=== PATIENT | female | born 1980 | race African-American/Black ===

== ENCOUNTER 2019-03-18 07:30 | Emergency (ER) | payer SELFPAY ==
[~2019-03-18] VITALS: Ht 162.6 cm; Wt 90.7 kg
[2019-03-18] MEDS ORDERED: HYDROcodone/APAP 7.5/325MG 1 TAB TABLET PO ONE (07:45)
[2019-03-18] MEDS ORDERED: CYCLOBENZAPRINE 10 MG TABLET. PO ONE (07:45)
--- NOTE | 2019-03-18 08:02 | PHYS DOC ---
Past Medical History Past Medical History: Hypertension Past Surgical History: No Surgical History Alcohol Use: None Drug Use: None Adult General Chief Complaint Chief Complaint: SHOULDER INJURY HPI HPI Patient is a 39 year old left handed female who presents with complaining of right shoulder pain. Patient states she woke up this morning with right shoulder pain without known injury. Patient rated her pain 10 over 10 and states the pain getting force with movement of his shoulder. Patient denies focal neurodeficit and history of overusing her shoulder or shoulder pain. Review of Systems Review of Systems Constitutional: Denies fever or chills [] Eyes: Denies change in visual acuity, redness, or eye pain [] HENT: Denies nasal congestion or sore throat [] Respiratory: Denies cough or shortness of breath [] Cardiovascular: No additional information not addressed in HPI [] GI: Denies abdominal pain, nausea, vomiting, bloody stools or diarrhea [] : Denies dysuria or hematuria [] Musculoskeletal: Denies back pain, reports joint pain [] Integument: Denies rash or skin lesions [] Neurologic: Denies headache, focal weakness or sensory changes [] Endocrine: Denies polyuria or polydipsia [] All other systems were reviewed and found to be within normal limits, except as documented in this note. Current Medications Current Medications Current Medications Medications (Trade) Dose Ordered Sig/Nicole Start Time Stop Time Status Last Admin Dose Admin Acetaminophen/ Hydrocodone Bitart (Lortab 7.5/325) 1 tab 1X ONCE 03/18/19 07:45 03/18/19 08:08 DC 03/18/19 08:17 1 TAB Cyclobenzaprine HCl (Flexeril) 10 mg 1X ONCE 03/18/19 07:45 03/18/19 08:08 DC 03/18/19 08:17 10 MG Allergies Allergies Allergies Coded Allergies Type Severity Reaction Last Updated Verified No Known Drug Allergies 03/18/19 No Physical Exam Physical Exam Constitutional: Well developed, well nourished, mild distress, non-toxic appearance. [] HENT: Normocephalic, atraumatic, oropharynx moist. Eyes: PERRLA, EOMI, conjunctiva normal, no discharge. [] Neck: Normal range of motion, no tenderness, supple, no stridor. [] Cardiovascular:Heart rate regular rhythm, no murmur [] Lungs & Thorax: Bilateral breath sounds clear to auscultation [] Skin: Warm, dry, no erythema, no rash. [] Back: No tenderness, no CVA tenderness. [] Extremities: Right shoulder without deformity or edema or ecchymosis, mild tenderness anterior shoulder without limited range of motion, no cyanosis, no clubbing, no edema. [] Neurologic: Alert and oriented X 3, normal motor function, normal sensory func tion, no focal deficits noted. [] Psychologic: Affect normal. Current Patient Data Vital Signs Vital Signs Date Time Temp Pulse Resp B/P (MAP) Pulse Ox O2 Delivery O2 Flow Rate FiO2 03/18/19 08:17 16 96 Room Air 03/18/19 07:34 97.9 80 201/93 (129) 97.9 EKG EKG [] Radiology/Procedures Radiology/Procedures [] Course & Med Decision Making Course & Med Decision Making Pertinent Imaging studies reviewed. (See chart for details) Evaluation of patient in ER showed 39-year-old female patient with complaint of right shoulder pain since this morning without injury. Patient had normal but painful range of motion of right shoulder. X-ray did not show acute finding. Patient also had history of hypertension and didn't take her blood pressure medication this morning and had blood pressure 190 over 120s. Blood pressure gradually decreased to 170/100. Patient treated with [place] and Flexeril and felt better. Plan to apply shoulder sling. She was advised to follow with her primary care physician and take her blood pressure medication as recommended. Dragon Disclaimer Dragon Disclaimer This electronic medical record was generated, in whole or in part, using a voice recognition dictation system. Departure Departure Impression: Primary Impression: Sprain of right shoulder Additional Impression: Uncontrolled hypertension Disposition: HOME, SELF-CARE (at [phone]) Condition: IMPROVED Patient Instructions: Managing Your High Blood Pressure, Shoulder Sprain Additional Instructions: Follow-up with your primary care physician in 3-5 days Return to ER if not getting better Apply ice on the affected area Scripts Hydrocodone/Apap 5-325 (NORCO 5-325 TABLET) 1 Each Tablet 1 TAB PO PRN Q6HRS PRN for PAIN, #10 TAB 0 Refills Prov: RADHA GRANT MD 03/18/19 Naproxen (NAPROSYN) 500 Mg Tablet 1 TAB PO BID for pain, #20 TAB Prov: RADHA GRANT MD 03/18/19 Cyclobenzaprine Hcl (CYCLOBENZAPRINE HCL) 10 Mg Tablet 1 TAB PO TID for muscle pain, #20 TAB Prov: RADHA GRANT MD 03/18/19 Problem Qualifiers Primary Impression: Sprain of right shoulder Encounter type: initial encounter Shoulder sprain type: unspecified sprain Qualified Codes: S43.401A - Unspecified sprain of right shoulder joint, initial encounter RADHA GRANT MD Mar 18, 2019 08:02
--- NOTE | 2019-03-18 08:24 | RAD ---
RIGHT SHOULDER , 3 VIEWS Clinical Indication: woke up this am with severe right shoulder pain, no known injury, feels like its locking up. Comparison: None. Findings: There is no acute fracture or dislocation. The glenohumeral joint is intact. Mild acromioclavicular arthropathy. The visualized lung is clear. There is no evidence of a displaced rib fracture. There is no soft tissue abnormality. IMPRESSION: No acute fracture or dislocation. Electronically signed by: Ganesh Conklin MD (03/18/2019 8:21 AM) [id number]
[2019-03-18] MEDS ORDERED: NAPR-683 PO ×2 (08:36→08:50)
[2019-03-18] MEDS ORDERED: CYCL10TA2 PO ×2 (08:36→08:50)
[2019-03-18] MEDS ORDERED: HYDR-3164 PO ×2 (08:36→08:50)
[2019-03-18 09:09] VITALS: BP 153/94
== END 2019-03-18 09:13 | disposition home or self-care (01) ==
LOC: ER 07:30
DX: S43.491A Other sprain of right shoulder joint, initial encounter (principal); I10 Essential (primary) hypertension; X50.9XXA Other and unspecified overexertion or strenuous movements or postures, initial encounter; Y93.89 Activity, other specified; Y92.89 Other specified places as the place of occurrence of the external cause; Y99.8 Other external cause status
CPT/HCPCS: 73030; 99284

== ENCOUNTER → 2021-11-09 | Outpatient (CLI) | payer BC, OTHER ==
[~2021-11-09] MED LIST: CYCL10TA19 PO; HYDR-3164 PO; NAPR-683 PO
--- NOTE | 2021-11-09 16:14 | RAD ---
Digital Mammogram Bilateral History: Routine screening Technique: 2-D digital CC and MLO views were obtained. CAD - computer aided detection was utilize d. Comparison: None. This is a baseline exam. Findings: Breast Tissue Density B : There are scattered areas of fibroglandular density In the 12:00 position of the right breast about 2 cm from the nipple, there is a 4 mm oval circumscri bed mass. In the left breast on the cc view there is some asymmetry in the posterior breast slightly medial to the nipple line about 11 cm from the nipple. There are no malignant appearing calcifications, or area s of architectural distortion. Impression: A 4 mm mass in the 12:00 position the right breast, 2 cm from the nipple. Further evaluation with tar geted right breast ultrasound is recommended. Asymmetry in the posterior slightly medial aspect of the left breast. Further evaluation with a diagn ostic mammogram is recommended. 3-D mammography is preferred, but if the patient declines this, 2-D m ammography with spot views and mediolateral view could be performed. Targeted left breast ultrasound can be obtained, if needed. Assessment: BI-RADS 0. Incomplete. Additional imaging is recommended. Recommendation: Targeted right breast ultrasound. Diagnostic left mammogram. If needed, targeted left breast ultrasound. The patient will receive a letter with the results in the mail. Patient information will be entered i nto the mammography reminder system with a target recall date for the next mammogram. A reminder andreia er will be generated. Electronically signed by: Ninoska Quinteros MD (11/09/2021 4:12 PM) [id number]
== END ==
LOC: US 14:39
PROVIDERS: ATTEND Family Medicine
DX: Z12.31 Encounter for screening mammogram for malignant neoplasm of breast (principal)
CPT/HCPCS: 77067